=== PATIENT | male | born 1935 | race Caucasian/White ===

== ENCOUNTER 2019-03-04 17:47 | Emergency (ER) | payer MEDICARE, MEDICAID ==
[2019-03-04] MEDS ORDERED: Pantoprazole 40 MG Vial IVPUSH ONE (18:19)
[2019-03-04] MEDS ORDERED: Sodium Chloride 0.9% 1,000 ML IV ONE (18:31)
[2019-03-04 18:36] LABS: ANION GAP 16.8
--- NOTE | 2019-03-04 18:47 | EDM.PDOC ---
Scribed by Jenifer Will 03/04/19 1846 for Dianna Lanza, FIRE WATCHER <Dianna Lanza - Last Filed: 03/04/19 18:46> ED HPI GENERAL MEDICAL PROBLEM - General Chief Complaint: Gastrointestinal Problem Stated Complaint: THROWING UP BLOOD Time Seen by Provider: 03/04/19 18:25 Source of Information: Reports: Patient, RN, RN Notes Reviewed History Limitations: Reports: No Limitations - History of Present Illness INITIAL COMMENTS - FREE TEXT/NARRATIVE: A 89-year-old male presents with complaints of coffee ground emesis and black tarry stools x1 day. Patient has not collection of what he ate last. He lives alone and he visited by a neighbor occasionally. Patient reports that he is on no medications at this time, but takes Aleve occasionally even though he cannot recall the last time he took it. He thinks he has never had a history of black stools or coffee ground emesis. He called his primary care provider and was told to come to the ER. He denies any fevers, chills, chest pain, or shortness of breath at this time. Onset: Gradual Duration: Getting Worse Location: Reports: Abdomen Severity: Mild Improves with: Reports: None Worsens with: Reports: None Associated Symptoms: Reports: No Other Symptoms - Related Data Home Meds: Home Meds . [No Known Home Meds] 03/04/19 [History] Past Medical History HEENT History: Reports: Impaired Vision - Past Surgical History GI Surgical History: Reports: Hernia Repair/Other Musculoskeletal Surgical History: Reports: Hip Replacement Social & Family History - Tobacco Use Smoking Status *Q: Never Smoker Second Hand Smoke Exposure: No - Recreational Drug Use Recreational Drug Use: No ED ROS GENERAL - Review of Systems Review Of Systems: Comprehensive ROS is negative, except as noted in HPI. ED EXAM, GI/ABD - Physical Exam Exam: See Below Exam Limited By: No Limitations General Appearance: Alert, No Apparent Distress Eyes: Bilateral: Normal Appearance Ears: Normal External Exam, Normal Canal, Hearing Grossly Normal, Normal TMs Nose: Normal Inspection, Normal Mucosa, No Blood Throat/Mouth: Normal Inspection, Normal Lips, Normal Oropharynx, Normal Voice, Other (coffee ground emesis noted around his mouth. No teeth. ) Head: Atraumatic, Normocephalic Neck: Normal Inspection, Supple, Non-Tender, Full Range of Motion Respiratory/Chest: No Respiratory Distress, Lungs Clear, Normal Breath Sounds, No Accessory Muscle Use, Chest Non-Tender Cardiovascular: Normal Peripheral Pulses, Regular Rate, Rhythm, No Edema, No Gallop, No JVD, No Murmur, No Rub GI/Abdominal Exam: Normal Bowel Sounds, Soft, Non-Tender, No Organomegaly, No Distention, No Abnormal Bruit, No Mass, Pelvis Stable (Male) Exam: Deferred Rectal (Males) Exam: Deferred Back Exam: Normal Inspection, Full Range of Motion, NT Extremities: Normal Inspection, Normal Range of Motion, Non-Tender, Normal Capillary Refill, Pedal Edema (1+ pitting edema x1 year. ) Neurological: Alert, Oriented Psychiatric: Normal Affect, Normal Mood Skin Exam: Warm, Dry, Intact, Normal Color, No Rash Lymphatic: No Adenopathy Course - Vital Signs Last Recorded V/S: Last Vital Signs Temp 37.4 C 03/04/19 17:52 Pulse 109 H 03/04/19 17:52 Resp 18 03/04/19 17:52 BP 147/62 H 03/04/19 17:52 Pulse Ox 90 L 03/04/19 17:52 - Orders/Labs/Meds Orders: Active Orders 24 hr Category Date Time Status Sodium Chloride 0.9% [Normal Saline] 1,000 ml Med 03/04/19 18:31 Active IV .BOLUS Medication Orders Sodium Chloride (Normal Saline) 1,000 mls @ 999 mls/hr IV .BOLUS ONE Stop: 03/04/19 19:31 Last Admin: 03/04/19 18:35 Dose: 999 mls/hr Labs: Laboratory Tests 03/04/19 03/04/19 Range/Units 18:02 18:02 WBC 7.0 (5.0-10.0) 10^3/uL RBC 4.63 (4.6-6.2) 10^6/uL Hgb 14.3 (14.0-18.0) g/dL Hct 42.7 (40.0-54.0) % MCV 92.2 (80-100) fL MCH 30.9 (27.0-34.0) pg MCHC 33.5 (33.0-35.0) g/dL Plt Count 263 (150-450) 10^3/uL Neut % (Auto) 74.2 (42.2-75.2) % Lymph % (Auto) 11.5 L (20.5-50.1) % [place] % (Auto) 13.6 H (2-8) % Eos % (Auto) 0.3 L (1.0-3.0) % Baso % (Auto) 0.4 (0.0-1.0) % Sodium 140 (135-145) mmol/L Potassium 3.8 (3.6-5.0) mmol/L Chloride 102 (101-111) mmol/L Carbon Dioxide 25.0 (21.0-31.0) mmol/L Anion Gap 16.8 BUN 31 H (7-18) mg/dL Creatinine 1.4 H (0.6-1.3) mg/dL Est Cr Clr Drug Dosing 37.51 mL/min Estimated GFR (MDRD) 47 BUN/Creatinine Ratio 22.14 Glucose 144 H (74-105) mg/dL Calcium 9.4 (8.4-10.2) mg/dl Total Bilirubin 0.8 (0.2-1.0) mg/dL AST 20 (10-42) IU/L ALT 12 (10-60) IU/L Alkaline Phosphatase 54 (42-121) IU/L Total Protein 7.7 (6.7-8.2) g/dl Albumin 4.1 (3.2-5.5) g/dl Globulin 3.6 Albumin/Globulin Ratio 1.14 Meds: Medications Generic Name Dose Route Start Last Admin Trade Name Freq PRN Reason Stop Dose Admin Sodium Chloride 1,000 mls @ 999 mls/hr 03/04/19 18:31 03/04/19 18:35 Normal Saline IV 03/04/19 19:31 999 mls/hr .BOLUS ONE Administration Discontinued Medications Generic Name Dose Route Start Last Admin Trade Name Freq PRN Reason Stop Dose Admin Pantoprazole Sodium 80 mg 03/04/19 18:19 03/04/19 18:26 Protonix Iv IVPUSH 03/04/19 18:20 80 mg .BOLUS ONE Administration - Re-Assessments/Exams Free Text/Narrative Re-Assessment/Exam: 03/04/19 18:42 Care of patient turned over to Dr. Simon at change of shift. Departure - Departure Disposition: DC/Tfer to [facility] 02 Clinical Impression: Upper GI bleed - Discharge Information Forms: Interfacility Transfer EMTALA Sepsis Event Note - Evaluation Sepsis Screening Result: No Definite Risk - Focused Exam Vital Signs: Vital Signs Temp Pulse Resp BP Pulse Ox 03/04/19 17:52 37.4 C 109 H 18 147/62 H 90 L Date Exam was Performed: 03/04/19 Time Exam was Performed: 18:46 <Hipolito Simon - Last Filed: 03/04/19 19:25> Course - Re-Assessments/Exams Free Text/Narrative Re-Assessment/Exam: 03/04/19 19:[address] Smith @ who kindly accepted pt. Departure - Departure Time of Disposition: 19:24 Condition: Good Sepsis Event Note - Focused Exam Date Exam was Performed: 03/04/19 Time Exam was Performed: 19:24 I have read and agree with the documentation that has been completed regarding this visit. By signing this record, I attest that the documentation was completed in my physical presence and is an accurate record of the encounter.
== END 2019-03-04 19:42 ==
LOC: DL.ED 17:47 → MERGE 17:47 → DL.ED 19:42
DX: K92.2 Gastrointestinal hemorrhage, unspecified (principal)
CPT/HCPCS: 36415; 80053; 82272; 85025; 96361; 96374; 99285; C9113; J7030; 99284

== ENCOUNTER 2020-03-18 09:02 | Observation (INO) | payer MEDICARE, MEDICAID ==
--- NOTE | 2020-03-18 09:47 | EDM.PDOC ---
"ED HPI GENERAL MEDICAL PROBLEM - General Chief Complaint: Behavioral/Psych Stated Complaint: WALKING FOUND WANDERING, LOST, CONFUSED Time Seen by Provider: 03/18/20 09:30 Source of Information: Reports: Patient, Old Records, Provider (Leigha Parker MD), RN, RN Notes Reviewed, Other (after school caregiver) History Limitations: Reports: Other (Confusion/Dementia) - History of Present Illness INITIAL COMMENTS - FREE TEXT/NARRATIVE: Pt presented to ER by POV brought by caregiver who found the pt wandering outside, lost, cold, and confused. Pt was found not far from his house. Caregiver reports pt was so cold and weak that he could only take a few steps with much assistance to get him into the car. Pt has Hx of dementia. He lives alone in [place], [place]. Pt has no family in the state. He has a niece who lives out of state listed as his DPA. The caregiver has been trying to get adult protective services to intervene for the pt's safety, but has been very frustrated by the lack of any action. Caregiver states that regardless of the findings in ER, that she will not take the pt back home as she feels he now poses a grave danger to his own safety. Caregiver reports the pt has been experiencing auditory and visual hallucinations. Pt told caregiver that 4 men were in his house, and one left but 3 are still in there. Pt denies pain, feeling cold, hungry, or any other complaints. Pt denies being confused. Onset: Unknown/Unsure Duration: Chronic, Getting Worse Location: Reports: Generalized Severity: Severe Improves with: Reports: None Worsens with: Reports: None Associated Symptoms: Reports: No Other Symptoms - Related Data Allergies Allergy/AdvReac Type Severity Reaction Status Date / Time aspirin Allergy Unknown Rash Verified 03/18/20 12:48 Penicillins Allergy Unknown Rash Verified 03/18/20 12:48 Home Meds: Home Meds Levothyroxine 25 mcg PO DAILY 03/18/20 [History] Past Medical History HEENT History: Reports: Impaired Vision Psychiatric History: Reports: Alzheimers Disease, Dementia Endocrine/Metabolic History: Reports: Hypothyroidism - Past Surgical History GI Surgical History: Reports: Hernia Repair/Other Musculoskeletal Surgical History: Reports: Hip Replacement Social & Family History - Family History Family Medical History: Unobtainable - Tobacco Use Tobacco Use Status *Q: Never Tobacco User - Alcohol Use Alcohol Use History: No - Recreational Drug Use Recreational Drug Use: No - Living Situation & Occupation Living situation: Reports: Single, Alone Occupation: Retired ED ROS GENERAL - Review of Systems Review Of Systems: Comprehensive ROS is negative, except as noted in HPI. ED EXAM, GENERAL - Physical Exam Exam: See Below Exam Limited By: No Limitations General Appearance: Alert, WD/WN, No Apparent Distress Eye Exam: Bilateral Eye: Normal Inspection Nose: Normal Inspection, Normal Mucosa, No Blood Throat/Mouth: Normal Lips, Normal Voice, No Airway Compromise Head: Atraumatic, Normocephalic Neck: Normal Inspection, Non-Tender Respiratory/Chest: No Respiratory Distress, Lungs Clear, Normal Breath Sounds, No Accessory Muscle Use, Chest Non-Tender Cardiovascular: Regular Rate, Rhythm, No Edema GI/Abdominal: Normal Bowel Sounds, Soft, Non-Tender, No Distention Back Exam: Normal Inspection Extremities: Normal Inspection, Normal Range of Motion, Non-Tender, No Pedal Edema Neurological: Alert, Oriented (to person only), CN II-XII Intact, No Motor/Sensory Deficits, Confused, Disoriented (to place and time/date), Memory Loss Recent Events, Other (Generalized weakness) Psychiatric: Normal Affect, Normal Mood Skin Exam: Warm, Dry, Normal Color Course - Vital Signs Last Recorded V/S: Last Vital Signs Temp 97.5 F 03/18/20 11:58 Pulse 77 03/18/20 11:58 Resp 18 03/18/20 11:58 BP 149/84 H 03/18/20 11:58 Pulse Ox 96 03/18/20 11:58 - Orders/Labs/Meds Orders: Active Orders 24 hr Category Date Time Status Admission Diagnosis [ADT] Routine ADT 03/18/20 16:53 Ordered Admission Status [Patient Status] [ADT] Routine ADT 03/18/20 16:53 Active Late Tray [DIET] Routine Diet 03/18/20 11:19 Active CULTURE URINE [RM] Stat Lab 03/18/20 11:25 Received Labs: Laboratory Tests 03/18/20 03/18/20 03/18/20 Range/Units 09:25 09:48 09:48 WBC 7.3 (5.0-10.0) 10^3/uL RBC 4.11 L (4.6-6.2) 10^6/uL Hgb 13.9 L (14.0-18.0) g/dL Hct 40.3 (40.0-54.0) % MCV 98.1 D (80-100) fL MCH 33.8 (27.0-34.0) pg MCHC 34.5 (33.0-35.0) g/dL Plt Count 225 D (150-450) 10^3/uL Neut % (Auto) 77.5 H (42.2-75.2) % Lymph % (Auto) 13.1 L (20.5-50.1) % [place] % (Auto) 8.4 H (2-8) % Eos % (Auto) 0.3 L (1.0-3.0) % Baso % (Auto) 0.7 (0.0-1.0) % Sodium 140 (136-145) mmol/L Potassium 4.6 (3.5-5.1) mmol/L Chloride 103 (98-107) mmol/L Carbon Dioxide 25 (21-32) mmol/L Anion Gap 16.6 H (7-13) mEq/L BUN 21 H (7-18) mg/dL Creatinine 1.19 (0.70-1.30) mg/dL Est Cr Clr Drug Dosing 49.81 mL/min Estimated GFR (MDRD) 58 BUN/Creatinine Ratio 17.6 (No establ ref range) Glucose 94 (74-99) mg/dL Calcium 9.5 (8.5-10.1) mg/dL Total Bilirubin 0.9 (0.2-1.0) mg/dL AST 20 (15-37) U/L ALT 19 (16-63) U/L Alkaline Phosphatase 81 (46-116) U/L Total Protein 8.2 (6.4-8.2) g/dL Albumin 4.5 (3.4-5.0) g/dL Globulin 3.7 Albumin/Globulin Ratio 1.2 TSH, Ultra Sensitive 6.88 H (0.36-3.74) uIU/mL Urine Color (YELLOW) Urine Appearance (CLEAR) Urine pH (5.0-9.0) Ur Specific [place] (1.005-1.030) Urine Protein (NEGATIVE) Urine Glucose (UA) (NEGATIVE) Urine Ketones (NEGATIVE) Urine Occult Blood (NEGATIVE) Urine Nitrite (NEGATIVE) Urine Bilirubin (NEGATIVE) Urine Urobilinogen (0.2-1.0) mg/dL Ur Leukocyte Esterase (NEGATIVE) Urine RBC /HPF Urine WBC (0-5/HPF) /HPF Ur Epithelial Cells (NOT SEEN) /HPF Amorphous Sediment (NOT SEEN) /HPF Urine Bacteria (0-FEW/HPF) /HPF Urine Mucus (NOT SEEN) /LPF Urine Opiates Screen (NEGATIVE) Ur Oxycodone Screen (NEGATIVE) Urine Methadone Screen (NEGATIVE) Ur Barbiturates Screen (NEGATIVE) U Tricyclic Antidepress (NEGATIVE) Ur Phencyclidine Scrn (NEGATIVE) Ur Amphetamine Screen (NEGATIVE) U Methamphetamines Scrn (NEGATIVE) Urine MDMA Screen (NEGATIVE) U Benzodiazepines Scrn (NEGATIVE) Urine Cocaine Screen (NEGATIVE) U Marijuana (THC) Screen (NEGATIVE) Ethyl Alcohol < 3 (0) mg/dL Influenza Type A RNA Negative (NEGATIVE) Influenza Type B RNA Negative (NEGATIVE) SARS-CoV-2 RNA ([place]) Negative (NEGATIVE) 03/18/20 03/18/20 Range/Units 11:25 11:26 WBC (5.0-10.0) 10^3/uL RBC (4.6-6.2) 10^6/uL Hgb (14.0-18.0) g/dL Hct (40.0-54.0) % MCV (80-100) fL MCH (27.0-34.0) pg MCHC (33.0-35.0) g/dL Plt Count (150-450) 10^3/uL Neut % (Auto) (42.2-75.2) % Lymph % (Auto) (20.5-50.1) % [place] % (Auto) (2-8) % Eos % (Auto) (1.0-3.0) % Baso % (Auto) (0.0-1.0) % Sodium (136-145) mmol/L Potassium (3.5-5.1) mmol/L Chloride (98-107) mmol/L Carbon Dioxide (21-32) mmol/L Anion Gap (7-13) mEq/L BUN (7-18) mg/dL Creatinine (0.70-1.30) mg/dL Est Cr Clr Drug Dosing mL/min Estimated GFR (MDRD) BUN/Creatinine Ratio (No establ ref range) Glucose (74-99) mg/dL Calcium (8.5-10.1) mg/dL Total Bilirubin (0.2-1.0) mg/dL AST (15-37) U/L ALT (16-63) U/L Alkaline Phosphatase (46-116) U/L Total Protein (6.4-8.2) g/dL Albumin (3.4-5.0) g/dL Globulin Albumin/Globulin Ratio TSH, Ultra Sensitive (0.36-3.74) uIU/mL Urine Color Yellow (YELLOW) Urine Appearance Slightly cloudy (CLEAR) Urine pH 6.5 (5.0-9.0) Ur Specific [place] 1.020 (1.005-1.030) Urine Protein 30 H (NEGATIVE) Urine Glucose (UA) Negative (NEGATIVE) Urine Ketones Negative (NEGATIVE) Urine Occult Blood Trace-intact H (NEGATIVE) Urine Nitrite Negative (NEGATIVE) Urine Bilirubin Negative (NEGATIVE) Urine Urobilinogen 0.2 (0.2-1.0) mg/dL Ur Leukocyte Esterase Small H (NEGATIVE) Urine RBC 5-10 H /HPF Urine WBC 30-40 H (0-5/HPF) /HPF Ur Epithelial Cells Few (NOT SEEN) /HPF Amorphous Sediment Few (NOT SEEN) /HPF Urine Bacteria Few (0-FEW/HPF) /HPF Urine Mucus Few H (NOT SEEN) /LPF Urine Opiates Screen Negative (NEGATIVE) Ur Oxycodone Screen Negative (NEGATIVE) Urine Methadone Screen Negative (NEGATIVE) Ur Barbiturates Screen Negative (NEGATIVE) U Tricyclic Antidepress Negative (NEGATIVE) Ur Phencyclidine Scrn Negative (NEGATIVE) Ur Amphetamine Screen Negative (NEGATIVE) U Methamphetamines Scrn Negative (NEGATIVE) Urine MDMA Screen Negative (NEGATIVE) U Benzodiazepines Scrn Negative (NEGATIVE) Urine Cocaine Screen Negative (NEGATIVE) U Marijuana (THC) Screen Negative (NEGATIVE) Ethyl Alcohol (0) mg/dL Influenza Type A RNA (NEGATIVE) Influenza Type B RNA (NEGATIVE) SARS-CoV-2 RNA ([place]) (NEGATIVE) Meds: Medications Discontinued Medications Generic Name Dose Route Start Last Admin Trade Name Freq PRN Reason Stop Dose Admin Ciprofloxacin 250 mg 03/18/20 12:52 03/18/20 14:23 Ciprofloxacin Hcl PO 03/18/20 12:53 250 mg ONETIME ONE Administration Lorazepam 0.5 mg 03/18/20 14:18 03/18/20 14:23 Ativan PO 03/18/20 14:19 0.5 mg ONETIME ONE Administration Quetiapine Fumarate 50 mg 03/18/20 14:18 03/18/20 14:24 Seroquel PO 03/18/20 14:19 50 mg ONETIME ONE Administration - Radiology Interpretation Free Text/Narrative:: [facility] [place] [facility] Final Radiology Report Call: [phone] assistance Online chat: [email or web address] Name: ORAL VENTURA Age: 84Years M Date: 03/18/2020 SSN: -- : [id number] Study: CT HEAD WO CONT Requesting Physician: AMI HAND Images: 151 Addl Studies: Provided Clinical History: Found wandering outside, unknown if CVA or injury Contrast: Without Contrast Medium: Contrast Amount: Contrast Method: Page 1 of 2 PROCEDURE INFORMATION: Exam: CT Head Without Contrast Exam date and time: 03/18/2020 10:11 AM Age: 84 years old Clinical indication: Other: Found wandering outside. ? CVA; Additional info: Found wandering outside, unknown if CVA or injury TECHNIQUE: Imaging protocol: Computed tomography of the head without contrast. Radiation optimization: All CT scans at this facility use at least one of these dose optimization techniques: automated exposure control; mA and/or kV adjustment per patient size (includes targeted exams where dose is matched to clinical indication); or iterative reconst ruction. COMPARISON: No relevant prior studies available. FINDINGS: Brain: There is no acute intracranial hemorrhage. There is lucency in the cerebral white matter, likely microvascular disease although non-specific. Peña white differentiation is intact. There are no extraaxial fluid collections. No evidence of mass. There is no mass effect or midline shift. Cerebral ventricles: The ventricles and sulci are enlarged, consistent with volume loss / atrophy. No hydrocephalus. Bones/joints: No acute fracture. Paranasal sinuses: There is small retention cysts or polyps in maxillary sinuses. There is a small osteoma in right frontal sinus. Mastoid air cells: No significant mastoid effusion. Vasculature: There is vascular calcification. Soft tissues: Unremarkable as visualized. IMPRESSION: ORAL VENTURA | Final Radiology Report CONFIDENTIALITY STATEMENT This report is intended only for use by the referring physician, and only in accordance with law. If you received this in error, call [phone]. Page 2 of 2 1. No evidence of acute intracranial abnormality. No evidence of acute infarction, hemorrhage, or mass. 2. Atrophy and microvascular disease. Thank you for allowing us to participate in the care of your patient. Dictated and Authenticated by: Pam Parmar MD 03/18/2020 10:32 AM Central Time ([place] & [place]) - Re-Assessments/Exams Free Text/Narrative Re-Assessment/Exam: 03/18/20 09:50 Pt caregiver states she called [facility] and she understood that Eve BARRERA would meet them at the ER to evaluate the pt and make him a direct admit. Caregiver was very upset and became briefly hostile when she was told that the clinic providers do not come to the ER and that an admittable diagnosis must first be determined in order to be admitted. Eventually the caregiver calmed down and expressed that she is exhausted and worried about the pt and she doesn't know what to do. I consulted Dr. Parker as 3 day hospital stay for NH/memory care placement has been waived due to the COVID crisis. She will look into options for placement while the pt has a medical screening exam. 03/18/20 16:56 Placement to NH has not been able to be arranged this evening. Pt will be a dmitted to observation to Dr. Hess with Dr. Parker aware. Departure - Departure Time of Disposition: 16:57 (admitted to Dr. Hess) Disposition: Refer to Observation Condition: Fair Clinical Impression: Dementia with psychosis UTI (urinary tract infection) Qualifiers: Urinary tract infection type: site unspecified Hematuria presence: with hematuria Qualified Code(s): N39.0 - Urinary tract infection, site not specified; R31.9 - Hematuria, unspecified - Discharge Information *PRESCRIPTION DRUG MONITORING PROGRAM REVIEWED*: Not Applicable *COPY OF PRESCRIPTION DRUG MONITORING REPORT IN PATIENT JIMY: Not Applicable Referrals: Tracie Parker MD [Primary Care Provider] - Forms: ED Department Discharge Sepsis Event Note (ED) - Evaluation Sepsis Screening Result: No Definite Risk - Focused Exam Vital Signs: Vital Signs Temp Pulse Resp BP BP Pulse Ox 03/18/20 11:58 97.5 F 77 18 149/84 H 96 03/18/20 09:25 96.8 F L 92 16 124/73 98 - My Orders Last 24 Hours: My Active Orders 03/18/20 11:19 Late Tray [DIET] Routine 03/18/20 11:25 CULTURE URINE [RM] Stat 03/18/20 16:53 Admission Diagnosis [ADT] Routine Admission Status [Patient Status] [ADT] Routine - Assessment/Plan Last 24 Hours: My Active Orders 03/18/20 11:19 Late Tray [DIET] Routine 03/18/20 11:25 CULTURE URINE [RM] Stat 03/18/20 16:53 Admission Diagnosis [ADT] Routine Admission Status [Patient Status] [ADT] Routine"
[2020-03-18 10:14] LABS: CORONAVIRUS COVID-19 NAA NEGATIVE (NEGATIVE)
--- NOTE | 2020-03-18 10:32 | CT ---
PROCEDURE INFORMATION: Exam: CT Head Without Contrast Exam date and time: 03/18/2020 10:11 AM Age: 84 years old Clinical indication: Other: Found wandering outside. ? CVA; Additional info: Found wandering outside, unknown if CVA or injury TECHNIQUE: Imaging protocol: Computed tomography of the head without contrast. Radiation optimization: All CT scans at this facility use at least one of these dose optimization techniques: automated exposure control; mA and/or kV adjustment per patient size (includes targeted exams where dose is matched to clinical indication); or iterative reconstruction. COMPARISON: No relevant prior studies available. FINDINGS: Brain: There is no acute intracranial hemorrhage. There is lucency in the cerebral white matter, likely microvascular disease although non-specific. Peña white differentiation is intact. There are no extra-axial fluid collections. No evidence of mass. There is no mass effect or midline shift. Cerebral ventricles: The ventricles and sulci are enlarged, consistent with volume loss / atrophy. No hydrocephalus. Bones/joints: No acute fracture. Paranasal sinuses: There is small retention cysts or polyps in maxillary sinuses. There is a small osteoma in right frontal sinus. Mastoid air cells: No significant mastoid effusion. Vasculature: There is vascular calcification. Soft tissues: Unremarkable as visualized. IMPRESSION: 1. No evidence of acute intracranial abnormality. No evidence of acute infarction, hemorrhage, or mass. 2. Atrophy and microvascular disease.
[2020-03-18 10:43] LABS: ANION GAP 16.6 mEq/L (7-13); CHLORIDE,CL 103 mmol/L (98-107); SODIUM,NA 140 mmol/L (136-145)
[2020-03-18] MEDS ORDERED: Ciprofloxacin 500 MG Tab PO ONE (12:52)
[2020-03-18] MEDS ORDERED: LORazepam 0.5 MG Tab PO ONE (14:18)
[2020-03-18] MEDS ORDERED: QUEtiapine 25 MG Tab PO ONE (14:18)
[2020-03-18] MEDS ORDERED: Haloperidol Lactate 5 MG/ML SDV ONE (17:12)
[2020-03-18] MEDS ORDERED: Acetaminophen 325 MG Tab PO PRN (17:17)
[2020-03-18] MEDS: Haloperidol Lactate 5 MG/ML SDV IM PRN (17:17)
[2020-03-18] MEDS ORDERED: LORazepam 2 MG/ML SDV IVPUSH PRN (17:59)
[2020-03-18] MEDS ORDERED: Ondansetron 4 MG Tab.DIS PO PRN (17:59)
[2020-03-18] MEDS ORDERED: Prochlorperazine 5 MG Tab PO PRN (18:05)
--- NOTE | 2020-03-18 18:15 | PCM.HP ---
H&P History of Present Illness - General Date of Service: 03/18/20 Admit Problem/Dx: Admission Diagnosis/Problem Admission Diagnosis/Problem Confusion Source of Information: EMS Notes Reviewed - History of Present Illness Initial Comments - Free Text/Narative: is an 84-year-old man with medical history of hypothyroidismwho presented with increasing confusion. The patient was found outside wandering very cold and weak. Unable to provide history himself at this point. Patient has been living independently but has not been functioning well. Has become increasingly more confused. - Related Data Allergies/Adverse Reactions: Allergies Allergy/AdvReac Type Severity Reaction Status Date / Time aspirin Allergy Unknown Rash Verified 03/18/20 12:48 Penicillins Allergy Unknown Rash Verified 03/18/20 12:48 Home Medications: Home Meds Levothyroxine 25 mcg PO DAILY 03/18/20 [History] Past Medical History HEENT History: Reports: Impaired Vision Cardiovascular History: Reports: Hypertension Respiratory History: Reports: None Gastrointestinal History: Reports: Fecal Incontinence, GI Bleed, Hiatal Hernia Genitourinary History: Reports: BPH, Urinary Incontinence Musculoskeletal History: Reports: Osteoarthritis Psychiatric History: Reports: Alzheimers Disease, Dementia, Hallucinations, Psychosis Endocrine/Metabolic History: Reports: Hypothyroidism Hematologic History: Reports: None Immunologic History: Reports: None - Past Surgical History GI Surgical History: Reports: Hernia Repair/Other Musculoskeletal Surgical History: Reports: Hip Replacement Social & Family History - Family History Family Medical History: Unobtainable - Tobacco Use Tobacco Use Status *Q: Never Tobacco User - Caffeine Use Caffeine Use: Reports: Coffee, Soda - Recreational Drug Use Recreational Drug Use: No - Living Situation & Occupation Living situation: Reports: Single, Alone Occupation: Retired H&P Review of Systems - Review of Systems: Review Of Systems: Unable To Obtain (because of confusion) Reason Not Obtained: because of extreme confusion Exam - Exam Exam: See Below - Vital Signs Vital Signs: Last Vital Signs Temp 36.4 C 03/18/20 11:58 Pulse 77 03/18/20 11:58 Resp 18 03/18/20 11:58 BP 149/84 H 03/18/20 11:58 Pulse Ox 96 03/18/20 11:58 Weight: 84.776 kg - Exam General: Other (dementia and confused) HEENT: PERRLA, Hearing Intact, Mucosa Moist & [place], Nares Patent, Normal Nasal Septum, Posterior Pharynx Clear, Conjunctiva Clear, EOMI, EACs Clear, TMs Clear Neck: Supple, Trachea Midline, 2 Lungs: Clear to Auscultation, Normal Respiratory Effort Cardiovascular: Regular Rate, Regular Rhythm Extremities: Pedal Edema - Patient Data Lab Results Last 24 hrs: Laboratory Results - last 24 hr 03/18/20 03/18/20 03/18/20 Range/Units 09:25 09:48 09:48 WBC 7.3 (5.0-10.0) 10^3/uL RBC 4.11 L (4.6-6.2) 10^6/uL Hgb 13.9 L (14.0-18.0) g/dL Hct 40.3 (40.0-54.0) % MCV 98.1 D (80-100) fL MCH 33.8 (27.0-34.0) pg MCHC 34.5 (33.0-35.0) g/dL Plt Count 225 D (150-450) 10^3/uL Neut % (Auto) 77.5 H (42.2-75.2) % Lymph % (Auto) 13.1 L (20.5-50.1) % [place] % (Auto) 8.4 H (2-8) % Eos % (Auto) 0.3 L (1.0-3.0) % Baso % (Auto) 0.7 (0.0-1.0) % Sodium 140 (136-145) mmol/L Potassium 4.6 (3.5-5.1) mmol/L Chloride 103 (98-107) mmol/L Carbon Dioxide 25 (21-32) mmol/L Anion Gap 16.6 H (7-13) mEq/L BUN 21 H (7-18) mg/dL Creatinine 1.19 (0.70-1.30) mg/dL Est Cr Clr Drug Dosing 49.81 mL/min Estimated GFR (MDRD) 58 BUN/Creatinine Ratio 17.6 (No establ ref range) Glucose 94 (74-99) mg/dL Calcium 9.5 (8.5-10.1) mg/dL Total Bilirubin 0.9 (0.2-1.0) mg/dL AST 20 (15-37) U/L ALT 19 (16-63) U/L Alkaline Phosphatase 81 (46-116) U/L Total Protein 8.2 (6.4-8.2) g/dL Albumin 4.5 (3.4-5.0) g/dL Globulin 3.7 Albumin/Globulin Ratio 1.2 TSH, Ultra Sensitive 6.88 H (0.36-3.74) uIU/mL Urine Color (YELLOW) Urine Appearance (CLEAR) Urine pH (5.0-9.0) Ur Specific [place] (1.005-1.030) Urine Protein (NEGATIVE) Urine Glucose (UA) (NEGATIVE) Urine Ketones (NEGATIVE) Urine Occult Blood (NEGATIVE) Urine Nitrite (NEGATIVE) Urine Bilirubin (NEGATIVE) Urine Urobilinogen (0.2-1.0) mg/dL Ur Leukocyte Esterase (NEGATIVE) Urine RBC /HPF Urine WBC (0-5/HPF) /HPF Ur Epithelial Cells (NOT SEEN) /HPF Amorphous Sediment (NOT SEEN) /HPF Urine Bacteria (0-FEW/HPF) /HPF Urine Mucus (NOT SEEN) /LPF Urine Opiates Screen (NEGATIVE) Ur Oxycodone Screen (NEGATIVE) Urine Methadone Screen (NEGATIVE) Ur Barbiturates Screen (NEGATIVE) U Tricyclic Antidepress (NEGATIVE) Ur Phencyclidine Scrn (NEGATIVE) Ur Amphetamine Screen (NEGATIVE) U Methamphetamines Scrn (NEGATIVE) Urine MDMA Screen (NEGATIVE) U Benzodiazepines Scrn (NEGATIVE) Urine Cocaine Screen (NEGATIVE) U Marijuana (THC) Screen (NEGATIVE) Ethyl Alcohol < 3 (0) mg/dL Influenza Type A RNA Negative (NEGATIVE) Influenza Type B RNA Negative (NEGATIVE) SARS-CoV-2 RNA ([place]) Negative (NEGATIVE) 03/18/20 03/18/20 Range/Units 11:25 11:26 WBC (5.0-10.0) 10^3/uL RBC (4.6-6.2) 10^6/uL Hgb (14.0-18.0) g/dL Hct (40.0-54.0) % MCV (80-100) fL MCH (27.0-34.0) pg MCHC (33.0-35.0) g/dL Plt Count (150-450) 10^3/uL Neut % (Auto) (42.2-75.2) % Lymph % (Auto) (20.5-50.1) % [place] % (Auto) (2-8) % Eos % (Auto) (1.0-3.0) % Baso % (Auto) (0.0-1.0) % Sodium (136-145) mmol/L Potassium (3.5-5.1) mmol/L Chloride (98-107) mmol/L Carbon Dioxide (21-32) mmol/L Anion Gap (7-13) mEq/L BUN (7-18) mg/dL Creatinine (0.70-1.30) mg/dL Est Cr Clr Drug Dosing mL/min Estimated GFR (MDRD) BUN/Creatinine Ratio (No establ ref range) Glucose (74-99) mg/dL Calcium (8.5-10.1) mg/dL Total Bilirubin (0.2-1.0) mg/dL AST (15-37) U/L ALT (16-63) U/L Alkaline Phosphatase (46-116) U/L Total Protein (6.4-8.2) g/dL Albumin (3.4-5.0) g/dL Globulin Albumin/Globulin Ratio TSH, Ultra Sensitive (0.36-3.74) uIU/mL Urine Color Yellow (YELLOW) Urine Appearance Slightly cloudy (CLEAR) Urine pH 6.5 (5.0-9.0) Ur Specific [place] 1.020 (1.005-1.030) Urine Protein 30 H (NEGATIVE) Urine Glucose (UA) Negative (NEGATIVE) Urine Ketones Negative (NEGATIVE) Urine Occult Blood Trace-intact H (NEGATIVE) Urine Nitrite Negative (NEGATIVE) Urine Bilirubin Negative (NEGATIVE) Urine Urobilinogen 0.2 (0.2-1.0) mg/dL Ur Leukocyte Esterase Small H (NEGATIVE) Urine RBC 5-10 H /HPF Urine WBC 30-40 H (0-5/HPF) /HPF Ur Epithelial Cells Few (NOT SEEN) /HPF Amorphous Sediment Few (NOT SEEN) /HPF Urine Bacteria Few (0-FEW/HPF) /HPF Urine Mucus Few H (NOT SEEN) /LPF Urine Opiates Screen Negative (NEGATIVE) Ur Oxycodone Screen Negative (NEGATIVE) Urine Methadone Screen Negative (NEGATIVE) Ur Barbiturates Screen Negative (NEGATIVE) U Tricyclic Antidepress Negative (NEGATIVE) Ur Phencyclidine Scrn Negative (NEGATIVE) Ur Amphetamine Screen Negative (NEGATIVE) U Methamphetamines Scrn Negative (NEGATIVE) Urine MDMA Screen Negative (NEGATIVE) U Benzodiazepines Scrn Negative (NEGATIVE) Urine Cocaine Screen Negative (NEGATIVE) U Marijuana (THC) Screen Negative (NEGATIVE) Ethyl Alcohol (0) mg/dL Influenza Type A RNA (NEGATIVE) Influenza Type B RNA (NEGATIVE) SARS-CoV-2 RNA ([place]) (NEGATIVE) Result Diagrams: 03/18/20 09:48 03/18/20 09:48 Problem List Initiated/Reviewed/Updated: Yes Orders Last 24hrs: Active Orders 24 hr Category Date Time Status Admission Diagnosis [ADT] Routine ADT 03/18/20 16:53 Ordered Admission Status [Patient Status] [ADT] Routine ADT 03/18/20 16:53 Active Patient Status [ADT] Routine ADT 03/18/20 17:59 Active Initiate/Renew Violent-Self Destructive Restraints >/= Care 03/18/20 17:18 Ordered 17yo Q4H Intake and Output [RC] 06,14,22 Care 03/18/20 18:01 Active Nrsg Assess: Viol-S.Dest Rest [RC] Q1H Care 03/18/20 17:25 Active Oxygen Therapy [RC] PRN Care 03/18/20 17:59 Active Up ad Amanda [RC] ASDIRECTED Care 03/18/20 17:59 Active VTE/DVT Education [RC] PER UNIT ROUTINE Care 03/18/20 17:59 Active Vital Signs [RC] Q4H Care 03/18/20 17:59 Active Late Tray [DIET] Routine Diet 03/18/20 11:19 Active Regular Diet [DIET] Diet 03/18/20 Dinner Active CULTURE URINE [RM] Stat Lab 03/18/20 11:25 Received Acetaminophen [TylenoL] Med 03/18/20 17:59 Active 650 mg PO Q4H PRN Haloperidol Lactate [Haldol] Med 03/18/20 17:06 Active 5 mg IM Q6H PRN Heparin Sodium Med 03/18/20 22:00 Active 5,000 units SUBCUT Q8HR Ibuprofen [Motrin] Med 03/18/20 17:59 Active 200 mg PO Q6H PRN LORazepam [Ativan] Med 03/18/20 17:59 Active 1 mg IVPUSH Q6H PRN Prochlorperazine [Compazine] Med 03/18/20 18:05 Active 5 mg PO Q6HR PRN QUEtiapine [SEROqueL] Med 03/19/20 09:00 Active 25 mg PO BID Resuscitation Status Routine Resus Stat 03/18/20 17:59 Ordered Medication Orders Acetaminophen (Tylenol) 650 mg PO Q4H PRN PRN Reason: Pain (Mild 1-3)/fever Haloperidol Lactate (Haldol) 5 mg IM Q6H PRN PRN Reason: Irritability Last Admin: 03/18/20 17:17 Dose: 5 mg Documented by: [id number] Heparin Sodium (Porcine) (Heparin Sodium) 5,000 units SUBCUT Q8HR LINDSAY Ibuprofen (Motrin) 200 mg PO Q6H PRN PRN Reason: Pain (mild 1-3) Lorazepam (Ativan) 1 mg IVPUSH Q6H PRN PRN Reason: Anxiety Prochlorperazine Maleate (Compazine) 5 mg PO Q6HR PRN PRN Reason: Nausea/Vomiting Quetiapine Fumarate (Seroquel) 25 mg PO BID LINDSAY Assessment/Plan Comment:: #. Dementia Patient has increasing confusion Unable to live independently anymore #. Hypothyroidism Was on hormone replacement therapy TSH is mildly elevated Poorly compliant #. Elevated PSA Previously no #. Vulnerable adult Patient placement. #. Agitation Has been intermittently agitated Intravenous lorazepam when necessary Tremors Haldol when necessary we will plan to place the patient in a correction facility.
[2020-03-18] MEDS: LORazepam 1 MG Tab PO PRN (20:07)
[2020-03-18] MEDS: Ciprofloxacin 500 MG Tab PO SCH (20:08)
[2020-03-18] MEDS ORDERED: Amoxicillin/Clavulanate K 500-125 MG Tab PO SCH (21:00)
[2020-03-18] MEDS: Heparin Sodium 5,000 Units/ML Vial SUBCUT SCH (21:03)
[2020-03-19] MEDS: Haloperidol Lactate 5 MG/ML SDV IM PRN (00:16)
[2020-03-19] MEDS: Heparin Sodium 5,000 Units/ML Vial SUBCUT SCH ×3 (06:28→22:00)
[2020-03-19] MEDS: QUEtiapine 25 MG Tab PO SCH ×2 (08:46→20:27)
[2020-03-19] MEDS: Ciprofloxacin 500 MG Tab PO SCH ×2 (08:46→20:27)
--- NOTE | 2020-03-19 10:04 | PCM.PN ---
- General Info Date of Service: 03/19/20 Subjective Update: patient appears less restless today compared to yesterday Was able to get some sleep Required multiple doses of Haldol. Also was started on Seroquel - Review of Systems HEENT: Reports: No Symptoms Pulmonary: Reports: No Symptoms Cardiovascular: Reports: No Symptoms Gastrointestinal: Reports: No Symptoms Genitourinary: Reports: No Symptoms Musculoskeletal: Reports: No Symptoms Skin: Reports: No Symptoms Neurological: Reports: No Symptoms Psychiatric: Reports: No Symptoms - Patient Data Vitals - Most Recent: Last Vital Signs Temp 36.8 C 03/19/20 05:00 Pulse 83 03/19/20 05:00 Resp 16 03/19/20 05:00 BP 121/64 03/19/20 05:00 Pulse Ox 97 03/19/20 05:00 Weight - Most Recent: 84.776 kg I&O - Last 24 Hours: Intake & Output 03/18/20 03/19/20 03/19/20 22:59 06:59 14:59 Intake Total 200 Output Total 450 300 Balance -450 -100 Lab Results Last 24 Hours: Laboratory Results - last 24 hr 03/18/20 03/18/20 03/18/20 Range/Units 09:25 09:48 09:48 WBC 7.3 (5.0-10.0) 10^3/uL RBC 4.11 L (4.6-6.2) 10^6/uL Hgb 13.9 L (14.0-18.0) g/dL Hct 40.3 (40.0-54.0) % MCV 98.1 D (80-100) fL MCH 33.8 (27.0-34.0) pg MCHC 34.5 (33.0-35.0) g/dL Plt Count 225 D (150-450) 10^3/uL Neut % (Auto) 77.5 H (42.2-75.2) % Lymph % (Auto) 13.1 L (20.5-50.1) % [place] % (Auto) 8.4 H (2-8) % Eos % (Auto) 0.3 L (1.0-3.0) % Baso % (Auto) 0.7 (0.0-1.0) % Sodium 140 (136-145) mmol/L Potassium 4.6 (3.5-5.1) mmol/L Chloride 103 (98-107) mmol/L Carbon Dioxide 25 (21-32) mmol/L Anion Gap 16.6 H (7-13) mEq/L BUN 21 H (7-18) mg/dL Creatinine 1.19 (0.70-1.30) mg/dL Est Cr Clr Drug Dosing 49.81 mL/min Estimated GFR (MDRD) 58 BUN/Creatinine Ratio 17.6 (No establ ref range) Glucose 94 (74-99) mg/dL Calcium 9.5 (8.5-10.1) mg/dL Total Bilirubin 0.9 (0.2-1.0) mg/dL AST 20 (15-37) U/L ALT 19 (16-63) U/L Alkaline Phosphatase 81 (46-116) U/L Total Protein 8.2 (6.4-8.2) g/dL Albumin 4.5 (3.4-5.0) g/dL Globulin 3.7 Albumin/Globulin Ratio 1.2 TSH, Ultra Sensitive 6.88 H (0.36-3.74) uIU/mL Urine Color (YELLOW) Urine Appearance (CLEAR) Urine pH (5.0-9.0) Ur Specific [place] (1.005-1.030) Urine Protein (NEGATIVE) Urine Glucose (UA) (NEGATIVE) Urine Ketones (NEGATIVE) Urine Occult Blood (NEGATIVE) Urine Nitrite (NEGATIVE) Urine Bilirubin (NEGATIVE) Urine Urobilinogen (0.2-1.0) mg/dL Ur Leukocyte Esterase (NEGATIVE) Urine RBC /HPF Urine WBC (0-5/HPF) /HPF Ur Epithelial Cells (NOT SEEN) /HPF Amorphous Sediment (NOT SEEN) /HPF Urine Bacteria (0-FEW/HPF) /HPF Urine Mucus (NOT SEEN) /LPF Urine Opiates Screen (NEGATIVE) Ur Oxycodone Screen (NEGATIVE) Urine Methadone Screen (NEGATIVE) Ur Barbiturates Screen (NEGATIVE) U Tricyclic Antidepress (NEGATIVE) Ur Phencyclidine Scrn (NEGATIVE) Ur Amphetamine Screen (NEGATIVE) U Methamphetamines Scrn (NEGATIVE) Urine MDMA Screen (NEGATIVE) U Benzodiazepines Scrn (NEGATIVE) Urine Cocaine Screen (NEGATIVE) U Marijuana (THC) Screen (NEGATIVE) Ethyl Alcohol < 3 (0) mg/dL Influenza Type A RNA Negative (NEGATIVE) Influenza Type B RNA Negative (NEGATIVE) SARS-CoV-2 RNA ([place]) Negative (NEGATIVE) 03/18/20 03/18/20 Range/Units 11:25 11:26 WBC (5.0-10.0) 10^3/uL RBC (4.6-6.2) 10^6/uL Hgb (14.0-18.0) g/dL Hct (40.0-54.0) % MCV (80-100) fL MCH (27.0-34.0) pg MCHC (33.0-35.0) g/dL Plt Count (150-450) 10^3/uL Neut % (Auto) (42.2-75.2) % Lymph % (Auto) (20.5-50.1) % [place] % (Auto) (2-8) % Eos % (Auto) (1.0-3.0) % Baso % (Auto) (0.0-1.0) % Sodium (136-145) mmol/L Potassium (3.5-5.1) mmol/L Chloride (98-107) mmol/L Carbon Dioxide (21-32) mmol/L Anion Gap (7-13) mEq/L BUN (7-18) mg/dL Creatinine (0.70-1.30) mg/dL Est Cr Clr Drug Dosing mL/min Estimated GFR (MDRD) BUN/Creatinine Ratio (No establ ref range) Glucose (74-99) mg/dL Calcium (8.5-10.1) mg/dL Total Bilirubin (0.2-1.0) mg/dL AST (15-37) U/L ALT (16-63) U/L Alkaline Phosphatase (46-116) U/L Total Protein (6.4-8.2) g/dL Albumin (3.4-5.0) g/dL Globulin Albumin/Globulin Ratio TSH, Ultra Sensitive (0.36-3.74) uIU/mL Urine Color Yellow (YELLOW) Urine Appearance Slightly cloudy (CLEAR) Urine pH 6.5 (5.0-9.0) Ur Specific [place] 1.020 (1.005-1.030) Urine Protein 30 H (NEGATIVE) Urine Glucose (UA) Negative (NEGATIVE) Urine Ketones Negative (NEGATIVE) Urine Occult Blood Trace-intact H (NEGATIVE) Urine Nitrite Negative (NEGATIVE) Urine Bilirubin Negative (NEGATIVE) Urine Urobilinogen 0.2 (0.2-1.0) mg/dL Ur Leukocyte Esterase Small H (NEGATIVE) Urine RBC 5-10 H /HPF Urine WBC 30-40 H (0-5/HPF) /HPF Ur Epithelial Cells Few (NOT SEEN) /HPF Amorphous Sediment Few (NOT SEEN) /HPF Urine Bacteria Few (0-FEW/HPF) /HPF Urine Mucus Few H (NOT SEEN) /LPF Urine Opiates Screen Negative (NEGATIVE) Ur Oxycodone Screen Negative (NEGATIVE) Urine Methadone Screen Negative (NEGATIVE) Ur Barbiturates Screen Negative (NEGATIVE) U Tricyclic Antidepress Negative (NEGATIVE) Ur Phencyclidine Scrn Negative (NEGATIVE) Ur Amphetamine Screen Negative (NEGATIVE) U Methamphetamines Scrn Negative (NEGATIVE) Urine MDMA Screen Negative (NEGATIVE) U Benzodiazepines Scrn Negative (NEGATIVE) Urine Cocaine Screen Negative (NEGATIVE) U Marijuana (THC) Screen Negative (NEGATIVE) Ethyl Alcohol (0) mg/dL Influenza Type A RNA (NEGATIVE) Influenza Type B RNA (NEGATIVE) SARS-CoV-2 RNA ([place]) (NEGATIVE) Isidoro Results Last 24 Hours: Microbiology 03/18/20 11:25 Urine Culture - Preliminary Urine, Voided MIXED POSITIVE MICHAELA DAY 1 Med Orders - Current: Current Medications Acetaminophen (Tylenol) 650 mg PO Q4H PRN PRN Reason: Pain (Mild 1-3)/fever Ciprofloxacin (Ciprofloxacin Hcl) 250 mg PO BID [facility] Haloperidol Lactate (Haldol) 5 mg IM Q6H PRN PRN Reason: Irritability Last Admin: 03/19/20 00:16 Dose: 5 mg Documented by: Heparin Sodium (Porcine) (Heparin Sodium) 5,000 units SUBCUT Q8HR LINDSAY Last Admin: 03/19/20 06:28 Dose: 5,000 units Documented by: Ibuprofen (Motrin) 200 mg PO Q6H PRN PRN Reason: Pain (mild 1-3) Levothyroxine Sodium (Levothyroxine) 25 mcg PO ACBREAKFAST [facility] Lorazepam (Ativan) 1 mg PO Q6H PRN PRN Reason: Agitation Last Admin: 03/18/20 20:07 Dose: 1 mg Documented by: Phenazopyridine HCl (Urinary Pain Relief) 95 mg PO BID PRN PRN Reason: urinary frequency Prochlorperazine Maleate (Compazine) 5 mg PO Q6HR PRN PRN Reason: Nausea/Vomiting Quetiapine Fumarate (Seroquel) 25 mg PO BID [facility] Last Admin: 03/19/20 08:46 Dose: 25 mg Documented by: Discontinued Medications Acetaminophen (Tylenol) 650 mg PO Q6HR PRN PRN Reason: Pain Last Admin: 03/18/20 17:30 Dose: 650 mg Documented by: Amoxicillin/Clavulanate Potassium (Augmentin 500 Mg\125 Mg) 1 tab PO Q12HR [facility] Ciprofloxacin (Ciprofloxacin Hcl) 250 mg PO ONETIME ONE Stop: 03/18/20 12:53 Last Admin: 03/18/20 14:23 Dose: 250 mg Documented by: Ciprofloxacin (Ciprofloxacin Hcl) 500 mg PO BID [facility] Last Admin: 03/19/20 08:46 Dose: 500 mg Documented by: Haloperidol Lactate (Haldol) Confirm Administered Dose 5 mg .ROUTE .STK-MED ONE Stop: 03/18/20 17:13 Last Admin: 03/18/20 17:19 Dose: Not Given Documented by: Lorazepam (Ativan) 0.5 mg PO ONETIME ONE Stop: 03/18/20 14:19 Last Admin: 03/18/20 14:23 Dose: 0.5 mg Documented by: Lorazepam (Ativan) 1 mg IVPUSH Q6H PRN PRN Reason: Anxiety Ondansetron HCl (Zofran Odt) 4 mg PO Q6H PRN PRN Reason: nausea, able to take PO Quetiapine Fumarate (Seroquel) 50 mg PO ONETIME ONE Stop: 03/18/20 14:19 Last Admin: 03/18/20 14:24 Dose: 50 mg Documented by: - Exam General: Other (confused) Neck: Supple Lungs: Clear to Auscultation Cardiovascular: Regular Rate, Regular Rhythm GI/Abdominal Exam: Normal Bowel Sounds, Soft, Non-Tender, No Organomegaly, No Distention, No Abnormal Bruit, No Mass, Pelvis Stable Extremities: Pedal Edema Sepsis Event Note - Evaluation Sepsis Screening Result: No Definite Risk - Focused Exam Vital Signs: Vital Signs Temp Pulse Resp BP Pulse Ox 03/19/20 05:00 36.8 C 83 16 121/64 97 03/18/20 23:38 36.9 C 106 H 16 132/80 95 - Problem List Review Problem List Initiated/Reviewed/Updated: Yes - My Orders Last 24 Hours: My Active Orders 03/18/20 17:06 Haloperidol Lactate [Haldol] 5 mg IM Q6H PRN 03/18/20 Dinner Regular Diet [DIET] 03/18/20 17:18 Initiate/Renew Violent-Self Destructive Restraints >/=18yo Q4H 03/18/20 17:25 Nrsg Assess: Viol-S.Dest Rest [RC] Q1H 03/18/20 17:59 Patient Status [ADT] Routine Oxygen Therapy [RC] PRN Up ad [place] [RC] ASDIRECTED VTE/DVT Education [RC] 08,20 Vital Signs [RC] Q4H Acetaminophen [TylenoL] 650 mg PO Q4H PRN Ibuprofen [Motrin] 200 mg PO Q6H PRN Resuscitation Status Routine 03/18/20 18:01 Intake and Output [RC] 06,14,22 03/18/20 18:05 Prochlorperazine [Compazine] 5 mg PO Q6HR PRN 03/18/20 19:53 LORazepam [Ativan] 1 mg PO Q6H PRN 03/18/20 22:00 Heparin Sodium 5,000 units SUBCUT Q8HR 03/19/20 03:04 Communication Order [RC] PRN 03/19/20 09:00 QUEtiapine [SEROqueL] 25 mg PO BID 03/19/20 09:23 Phenazopyridine [Urinary Pain Relief] 95 mg PO BID PRN 03/19/20 09:30 Levothyroxine 25 mcg PO ACBREAKFAST 03/19/20 21:00 Ciprofloxacin [Ciprofloxacin HCl] 250 mg PO BID - Plan Plan:: #. Dementia Patient has increasing confusion Unable to live independently anymore #. Hypothyroidism Was on hormone replacement therapy TSH is mildly elevated Poorly compliant #. Elevated PSA Previously no #. Vulnerable adult Patient placement. #. Agitation Has been intermittently agitated continue Haldol when necessary Seroquel scheduled 2 times a day Restart patient on levothyroxine we will plan to place the patient in a halfway facility.
[2020-03-19] MEDS: Levothyroxine 25 MCG Tab PO SCH (11:06)
[2020-03-19] MEDS: Phenazopyridine 95 MG Tab PO PRN (11:06)
[2020-03-19] MEDS: Tamsulosin 0.4 MG Cap.ER PO SCH (11:06)
[2020-03-20] MEDS: LORazepam 1 MG Tab PO PRN (00:42)
[2020-03-20] MEDS: Haloperidol Lactate 5 MG/ML SDV IM PRN ×2 (01:32→17:05)
[2020-03-20] MEDS: Heparin Sodium 5,000 Units/ML Vial SUBCUT SCH ×4 (06:23→22:56)
[2020-03-20] MEDS: Levothyroxine 25 MCG Tab PO SCH (06:24)
[2020-03-20] MEDS: Tamsulosin 0.4 MG Cap.ER PO SCH (08:16)
[2020-03-20] MEDS: QUEtiapine 25 MG Tab PO SCH ×3 (08:17→20:09)
[2020-03-20] MEDS: Ciprofloxacin 500 MG Tab PO SCH ×3 (08:17→20:09)
--- NOTE | 2020-03-20 09:09 | PCM.PN ---
- General Info Date of Service: 03/20/20 Subjective Update: Patient was restless this morning. Had to be given intramuscular Haldol. Does not seem to be doing well with benzodiazepines. It appears that Haldol walks better. Patient is feeding himself this morning. - Review of Systems General: Reports: Malaise Neurological: Reports: Confusion, Weakness - Patient Data Vitals - Most Recent: Last Vital Signs Temp 37.1 C 03/20/20 08:23 Pulse 89 03/20/20 08:23 Resp 16 03/20/20 08:23 BP 150/90 H 03/20/20 08:23 Pulse Ox 99 03/20/20 08:23 Weight - Most Recent: 84.776 kg I&O - Last 24 Hours: Intake & Output 03/19/20 03/20/20 03/20/20 22:59 06:59 14:59 Intake Total 240 200 Output Total 400 200 Balance -160 0 Isidoro Results Last 24 Hours: Microbiology 03/18/20 11:25 Urine Culture - Final Urine, Voided Mixed Gram Positive Isolates Med Orders - Current: Current Medications Acetaminophen (Tylenol) 650 mg PO Q4H PRN PRN Reason: Pain (Mild 1-3)/fever Ciprofloxacin (Ciprofloxacin Hcl) 250 mg PO BID [facility] Last Admin: 03/20/20 08:17 Dose: 250 mg Documented by: Haloperidol Lactate (Haldol) 5 mg IM Q6H PRN PRN Reason: Irritability Last Admin: 03/20/20 01:32 Dose: 5 mg Documented by: Heparin Sodium (Porcine) (Heparin Sodium) 5,000 units SUBCUT Q8HR [facility] Last Admin: 03/20/20 06:23 Dose: 5,000 units Documented by: Ibuprofen (Motrin) 200 mg PO Q6H PRN PRN Reason: Pain (mild 1-3) Levothyroxine Sodium (Levothyroxine) 25 mcg PO ACBREAKFAST [facility] Last Admin: 03/20/20 06:24 Dose: 25 mcg Documented by: Lorazepam (Ativan) 1 mg PO Q6H PRN PRN Reason: Agitation Last Admin: 03/20/20 00:42 Dose: 1 mg Documented by: Phenazopyridine HCl (Urinary Pain Relief) 95 mg PO BID PRN PRN Reason: urinary frequency Last Admin: 03/19/20 11:06 Dose: 95 mg Documented by: Prochlorperazine Maleate (Compazine) 5 mg PO Q6HR PRN PRN Reason: Nausea/Vomiting Quetiapine Fumarate (Seroquel) 25 mg PO BID [facility] Last Admin: 03/20/20 08:17 Dose: 25 mg Documented by: Tamsulosin HCl (Flomax) 0.4 mg PO PCBREAKFAST [facility] Last Admin: 03/20/20 08:16 Dose: 0.4 mg Documented by: Discontinued Medications Acetaminophen (Tylenol) 650 mg PO Q6HR PRN PRN Reason: Pain Last Admin: 03/18/20 17:30 Dose: 650 mg Documented by: Amoxicillin/Clavulanate Potassium (Augmentin 500 Mg\125 Mg) 1 tab PO Q12HR [facility] Ciprofloxacin (Ciprofloxacin Hcl) 250 mg PO ONETIME ONE Stop: 03/18/20 12:53 Last Admin: 03/18/20 14:23 Dose: 250 mg Documented by: Ciprofloxacin (Ciprofloxacin Hcl) 500 mg PO BID [facility] Last Admin: 03/19/20 08:46 Dose: 500 mg Documented by: Haloperidol Lactate (Haldol) Confirm Administered Dose 5 mg .ROUTE .STK-MED ONE Stop: 03/18/20 17:13 Last Admin: 03/18/20 17:19 Dose: Not Given Documented by: Lorazepam (Ativan) 0.5 mg PO ONETIME ONE Stop: 03/18/20 14:19 Last Admin: 03/18/20 14:23 Dose: 0.5 mg Documented by: Lorazepam (Ativan) 1 mg IVPUSH Q6H PRN PRN Reason: Anxiety Ondansetron HCl (Zofran Odt) 4 mg PO Q6H PRN PRN Reason: nausea, able to take PO Quetiapine Fumarate (Seroquel) 50 mg PO ONETIME ONE Stop: 03/18/20 14:19 Last Admin: 03/18/20 14:24 Dose: 50 mg Documented by: - Exam General: Other (dementia. Confusion) Neck: Supple Lungs: Clear to Auscultation, Normal Respiratory Effort Cardiovascular: Regular Rate, Regular Rhythm GI/Abdominal Exam: Normal Bowel Sounds, Soft, Non-Tender, No Organomegaly, No Distention, No Abnormal Bruit, No Mass, Pelvis Stable Extremities: Normal Inspection, Normal Range of Motion, Non-Tender, No Pedal Edema, Normal Capillary Refill Sepsis Event Note - Evaluation Sepsis Screening Result: No Definite Risk - Focused Exam Vital Signs: Vital Signs Temp Pulse Resp BP BP Pulse Ox 03/20/20 08:23 37.1 C 89 16 150/90 H 99 03/20/20 04:57 36.4 C 90 16 136/68 96 - Problem List Review Problem List Initiated/Reviewed/Updated: Yes - My Orders Last 24 Hours: My Active Orders 03/19/20 09:00 QUEtiapine [SEROqueL] 25 mg PO BID 03/19/20 09:23 Phenazopyridine [Urinary Pain Relief] 95 mg PO BID PRN 03/19/20 09:30 Levothyroxine 25 mcg PO ACBREAKFAST 03/19/20 10:33 Tamsulosin [Flomax] 0.4 mg PO PCBREAKFAST 03/19/20 21:00 Ciprofloxacin [Ciprofloxacin HCl] 250 mg PO BID - Plan Plan:: #. Dementia Patient was having increasing confusion Unable to live independently anymore #. Hypothyroidism Was on hormone replacement therapy TSH is mildly elevated Poorly compliant #.benign prostatic hypertrophy/ Elevated PSA Patient has been retaining urine. #. Vulnerable adult Patient placement. #. Agitation Has been intermittently agitated continue Haldol when necessary We'll try to stay away from benzodiazepines as much as possible
[2020-03-20] MEDS: Acetaminophen 325 MG Tab PO PRN ×2 (18:22→22:55)
[2020-03-20] MEDS: Ibuprofen 200 MG Tab PO PRN (19:50)
[2020-03-20] MEDS: Phenazopyridine 95 MG Tab PO PRN (19:51)
[2020-03-21] MEDS: Heparin Sodium 5,000 Units/ML Vial SUBCUT SCH (06:51)
[2020-03-21] MEDS: Levothyroxine 25 MCG Tab PO SCH (06:58)
[2020-03-21] MEDS: Tamsulosin 0.4 MG Cap.ER PO SCH (08:25)
[2020-03-21] MEDS: Phenazopyridine 95 MG Tab PO PRN (08:25)
[2020-03-21] MEDS: QUEtiapine 25 MG Tab PO SCH (08:25)
[2020-03-21] MEDS: Ciprofloxacin 500 MG Tab PO SCH (08:26)
[2020-03-21] MEDS: Ibuprofen 200 MG Tab PO PRN (08:26)
--- NOTE | 2020-03-21 09:58 | PCM.DCSUM1 ---
Discharge Summary - Hospital Course Free Text/Narrative:: Patient with dementia found wandering aimlessly in the cold.Admitted to hospital and stabilized with medications. [facility] be [facility] to [facility]. #. Dementia Patient was having increasing confusion Unable to live independently anymore D/c to [facility] #. Hypothyroidism Was on hormone replacement therapy TSH was mildly elevated Restarted on levothyroxine #.benign prostatic hypertrophy/ Elevated PSA Started on flomax #. Vulnerable adult Place in a [facility] #. Agitation Seroquel - Discharge Data Discharge Date: 03/21/20 Discharge Disposition: DC/Tfer to SNF 03 Condition: Good - Referral to Home Health Primary Care Physician: Tracie Parker MD - Patient Instructions Activity: As Tolerated Notify Provider of: Fever, Nausea and/or Vomiting - Discharge Plan *PRESCRIPTION DRUG MONITORING PROGRAM REVIEWED*: Not Applicable *COPY OF PRESCRIPTION DRUG MONITORING REPORT IN PATIENT JIMY: Not Applicable Prescriptions/Med Rec: Tamsulosin [Flomax] 0.4 mg PO PCBREAKFAST #30 cap.er QUEtiapine [SEROquel] 25 mg PO BID #30 tablet Home Medications: Home Meds Levothyroxine 25 mcg PO DAILY 03/18/20 [History] QUEtiapine [SEROquel] 25 mg PO BID #30 tablet 03/21/20 [Rx] Tamsulosin [Flomax] 0.4 mg PO PCBREAKFAST #30 cap.er 03/21/20 [Rx] Referrals: Tracie Parker MD [Primary Care Provider] - - Discharge Summary/Plan Comment DC Time >30 min.: No - General Info Subjective Update: Patient was restless this morning. Had to be given intramuscular Haldol. Does not seem to be doing well with benzodiazepines. It appears that Haldol walks better. Patient is feeding himself this morning. - Review of Systems General: Reports: No Symptoms Pulmonary: Reports: No Symptoms Gastrointestinal: Reports: No Symptoms Neurological: Reports: Confusion - Patient Data Vitals - Most Recent: Last Vital Signs Temp 36.3 C 03/21/20 08:05 Pulse 89 03/21/20 08:05 Resp 20 03/21/20 08:05 BP 135/76 03/21/20 08:05 Pulse Ox 99 03/21/20 08:05 Weight - Most Recent: 84.776 kg I&O - Last 24 hours: Intake & Output 03/20/20 03/21/20 03/21/20 22:59 06:59 14:59 Intake Total 240 100 300 Balance 240 100 300 SHARONDA Results - Last 24 hrs: Microbiology 03/18/20 11:25 Urine Culture - Final Urine, Voided Mixed Gram Positive Isolates Med Orders - Current: Current Medications Acetaminophen (Tylenol) 650 mg PO Q4H PRN PRN Reason: Pain (Mild 1-3)/fever Last Admin: 03/20/20 22:55 Dose: 650 mg Documented by: Ciprofloxacin (Ciprofloxacin Hcl) 250 mg PO BID [facility] Last Admin: 03/21/20 08:26 Dose: 250 mg Documented by: Haloperidol Lactate (Haldol) 5 mg IM Q6H PRN PRN Reason: Irritability Last Admin: 03/20/20 17:05 Dose: 5 mg Documented by: Heparin Sodium (Porcine) (Heparin Sodium) 5,000 units SUBCUT Q8HR [facility] Last Admin: 03/21/20 06:51 Dose: Not Given Documented by: Ibuprofen (Motrin) 200 mg PO Q6H PRN PRN Reason: Pain (mild 1-3) Last Admin: 03/21/20 08:26 Dose: 200 mg Documented by: Levothyroxine Sodium (Levothyroxine) 25 mcg PO ACBREAKFAST [facility] Last Admin: 03/21/20 06:58 Dose: 25 mcg Documented by: Lorazepam (Ativan) 1 mg PO Q6H PRN PRN Reason: Agitation Last Admin: 03/20/20 00:42 Dose: 1 mg Documented by: Phenazopyridine HCl (Urinary Pain Relief) 95 mg PO BID PRN PRN Reason: urinary frequency Last Admin: 03/21/20 08:25 Dose: 95 mg Documented by: Prochlorperazine Maleate (Compazine) 5 mg PO Q6HR PRN PRN Reason: Nausea/Vomiting Quetiapine Fumarate (Seroquel) 25 mg PO BID [facility] Last Admin: 03/21/20 08:25 Dose: 25 mg Documented by: Tamsulosin HCl (Flomax) 0.4 mg PO PCBREAKFAST [facility] Last Admin: 03/21/20 08:25 Dose: 0.4 mg Documented by: Discontinued Medications Acetaminophen (Tylenol) 650 mg PO Q6HR PRN PRN Reason: Pain Last Admin: 03/18/20 17:30 Dose: 650 mg Documented by: Amoxicillin/Clavulanate Potassium (Augmentin 500 Mg\125 Mg) 1 tab PO Q12HR [facility] Ciprofloxacin (Ciprofloxacin Hcl) 250 mg PO ONETIME ONE Stop: 03/18/20 12:53 Last Admin: 03/18/20 14:23 Dose: 250 mg Documented by: Ciprofloxacin (Ciprofloxacin Hcl) 500 mg PO BID [facility] Last Admin: 03/19/20 08:46 Dose: 500 mg Documented by: Haloperidol Lactate (Haldol) Confirm Administered Dose 5 mg .ROUTE .STK-MED ONE Stop: 03/18/20 17:13 Last Admin: 03/18/20 17:19 Dose: Not Given Documented by: Lorazepam (Ativan) 0.5 mg PO ONETIME ONE Stop: 03/18/20 14:19 Last Admin: 03/18/20 14:23 Dose: 0.5 mg Documented by: Lorazepam (Ativan) 1 mg IVPUSH Q6H PRN PRN Reason: Anxiety Ondansetron HCl (Zofran Odt) 4 mg PO Q6H PRN PRN Reason: nausea, able to take PO Quetiapine Fumarate (Seroquel) 50 mg PO ONETIME ONE Stop: 03/18/20 14:19 Last Admin: 03/18/20 14:24 Dose: 50 mg Documented by: - Exam General: Reports: Alert Neck: Reports: Supple Lungs: Reports: Clear to Auscultation, Normal Respiratory Effort Cardiovascular: Reports: Regular Rate, Regular Rhythm Skin: Reports: Warm, Dry, Intact
== END 2020-03-21 10:40 ==
LOC: DL.ED 09:02 → DL.MS 16:53
PROVIDERS: ADMIT Hospitalist; ATTEND Hospitalist
DX: F03.90 Unspecified dementia, unspecified severity, without behavioral disturbance, psychotic disturbance, mood disturbance, and anxiety (principal); E03.9 Hypothyroidism, unspecified; I10 Essential (primary) hypertension; N40.0 Benign prostatic hyperplasia without lower urinary tract symptoms; R45.1 Restlessness and agitation; R97.20 Elevated prostate specific antigen [PSA]; Z20.822 Contact with and (suspected) exposure to COVID-19; Z88.8 Allergy status to other drugs, medicaments and biological substances; Z88.0 Allergy status to penicillin; Z79.890 Hormone replacement therapy
CPT/HCPCS: 0240U; 36415; 51701; 70450; 80053; 80305; 80307; 81001; 84443; 85025; 87086; 96372; 99217; 99219; 99225; 99284; 99285; A9270; G0378; J1630; J1644; U0002